=== PATIENT | male | born 1985 | race Caucasian/White ===

== ENCOUNTER 2016-03-14 12:36 | Emergency (ER) | payer OTHER ==
[~2016-03-14] VITALS: Ht 177.8 cm; Wt 89.8 kg
[~2016-03-14 12:36] MED LIST: NOHOMEMEDS
[2016-03-14 14:59] LABS: MCH 31.2 PG (29.0-34.0); MCHC 35.1 G/DL (30.0-36.0); MCV 88.9 FL (86-99); MEAN PLAT.VOLUME 9.9 uM^3 (9.0-12.4); PLATELET COUNT 222 K/uL (156-360); RBC DIS.WIDTH-CV 14.4 % (11.8-14.6); RBC DIS.WIDTH-SD 45.3 % (39-53); RED BLOOD COUNT 5.06 M/uL (4.00-5.50); WHITE BLOOD COUNT 8.4 K/uL (4.1-10.2)
[2016-03-14 15:03] LABS: AMPHETAMINE NEGATIVE (500 ng/mL); BARBITURATES NEGATIVE (200 ng/mL); BENZODIAZEPINES NEGATIVE (150 ng/mL); COCAINE NEGATIVE (150 ng/mL); METHADONE NEGATIVE (200 ng/mL); METHAMPHETAMINE NEGATIVE (500 ng/mL); OPIATES (MORPHINE) NEGATIVE (100 ng/mL); PHENCYCLIDINE NEGATIVE (25 ng/mL); THC CANNABINOIDS PRESUMPTIVE POSITIVE (50 ng/mL); TRICYCLIC ANTIDEPRESSANTS NEGATIVE (300 ng/mL)
[2016-03-14 15:04] LABS: ADD MEDTOX COMMENT Y; INTERNAL CONTROLS VALID? YES; OXYCODONE PRESUMPTIVE POSITIVE (100 ng/mL); PROPOXYPHENE NEGATIVE (300 ng/mL)
[2016-03-14 15:23] LABS: ANION GAP 13 MEQ/L (2-14); CHLORIDE 100 MEQ/L (99-109); SAMPLE HEMOLYSIS CHECK 0; SAMPLE ICTERIC CHECK 0; SAMPLE LIPEMIA CHECK 1; SODIUM 141 MEQ/L (136-147)
[2016-03-14 15:35] LABS: GFR ESTIMATE (CALCULATED) > 59 mL/min/; GLUCOSE 107 mg/dL (70-99); SERUM ETHYL ALCOHOL < 10 mg/dL; UREA NITROGEN (BUN) 9 mg/dL (9-23)
[2016-03-14 16:07] VITALS: BP 138/83
== END 2016-03-14 16:08 | disposition home or self-care (01) ==
LOC: EME 12:36
PROVIDERS: Emergency Medicine
DX: F11.20 Opioid dependence, uncomplicated (principal); F19.20 Other psychoactive substance dependence, uncomplicated; F17.200 Nicotine dependence, unspecified, uncomplicated
CPT/HCPCS: 80048; 84999; 85027; 99281; 99283; G0480